=== PATIENT | female | born 1950 | race Caucasian/White ===

== ENCOUNTER 2019-08-08 15:00 | Inpatient (IN) ==
[2019-08-08] MEDS ORDERED: BENTYL IM ONE (15:30)
[2019-08-08] MEDS ORDERED: ZOFRAN IV ONE (15:30)
[2019-08-08] MEDS ORDERED: NS 1,000 ML IV ONE ×2 (15:30)
[2019-08-08] MEDS ORDERED: MORPHINE IV ONE ×2 (15:30→17:13)
[2019-08-08] MEDS ORDERED: FLAGYL 500 MG/NS 500 MG/100 ML IVPB IV ONE (15:32)
[2019-08-08] MEDS ORDERED: LEVAQUIN 750 MG/D5W 750 MG/150 ML IVPB IV ONE (15:32)
--- NOTE | 2019-08-08 16:02 | Diag Imaging Result Doc PS360 ---
EXAM: CHEST-PORTABLE INDICATION: tachycardia TECHNIQUE: One view COMPARISON: 01/16/2018 FINDINGS: The right chest port is in stable position. The lungs are grossly clear. There is no discrete pleural fluid collection or pneumothorax. The cardiomediastinal silhouette and central vasculature are grossly unremarkable. IMPRESSION: No evidence of acute pathology by plain radiograph. Electronically signed by Ronen Reynoso 08/08/2019 3:59 PM
--- NOTE | 2019-08-08 16:17 | EKG Report ---
Test Performed on : 08/08/2019 4:11:52 PM Test Reason : tachycARDIA Blood Pressure : / mmHG Vent. Rate : 088 BPM Atrial Rate : 088 BPM P-R Int : 142 ms QRS Dur : 088 ms QT Int : 404 ms P-R-T Axes : 062 -30 073 degrees QTc Int : 488 ms Undetermined rhythm Left axis deviation Low voltage QRS Inferior infarct , age undetermined Abnormal ECG When compared with ECG of 16-JAN-2018 15:21, Current undetermined rhythm precludes rhythm comparison, needs review Unconfirmed Result
[2019-08-08 17:04] LABS: PROTIME 13.3 Seconds (11.0-16.0)
[2019-08-08 17:36] LABS: AGAP 14; ALB/GLOB RATIO 2.5; ALBUMIN 4.2 g/dL (3.5-5.0); ALKALINE PHOSPHATASE 80 U/L (32-104); AMYLASE 44 U/L (20-200); BUN 11 mg/dL (8-22); CALCIUM 10.1 mg/dL (8.8-10.2); CHLORIDE 101 mmol/L (98-107); COSMO 283; CREATININE 0.6 mg/dL (0.5-0.9); ESTIMATED GFR > 60; GLUCOSE 116 mg/dL (70-104); GOT 21 U/L (10-30); GPT 11 U/L (10-36); LIPASE 21 U/L (13-60); POTASSIUM 4.3 mmol/L (3.5-5.1); SODIUM 142 mmol/L (136-145); TCO2 27 mmol/L (25-35); TOTAL BILIRUBIN 0.56 mg/dL (0.20-1.00); TOTAL PROTEIN 5.9 g/dL (6.3-8.3)
[2019-08-08 17:45] LABS: BASO# 0.03 X1000 (0.0-0.2); BASO% 0.5 % (0.0-0.8); EOS# 0.01 X1000 (0.0-0.7); EOS% 0.2 % (0.0-10.0); HEMATOCRIT 39.2 % (37.0-47.0); HEMOGLOBIN 12.9 g/dL (12.0-16.0); IMM GRAN# 0.03 X1000 (0.0-0.04); IMM GRAN% 0.5 % (0.0-0.5); LYMPH# 0.81 X1000 (1.2-3.4); LYMPH% 13.5 % (20.5-51.1); MCH 28.4 PG (27-31); MCHC 32.9 g/dL (33-37); MCV 86.3 FL (81-99); MONO# 0.49 X1000 (0.11-0.59); MONO% 8.2 % (1.7-9.3); MPV 10.7 FL (7.4-10.4); NEUT# 4.64 X1000 (1.4-6.5); NEUT% 77.1 % (42.2-75.2); PLT 152 X1000 (130-400); RBC 4.54 XMIL (4.2-5.4); RDW 12.9 % (11.5-14.5); WBC 6.01 X1000 (4.8-10.8)
--- NOTE | 2019-08-08 18:08 | PROVIDER DOCUMENTATION ---
This chart was entered by Jesika Urrutia Scribe, acting as scribe for Marshal Kennedy MD. HPI-Abdominal Pain/GI Problem - General Chief Complaint: Nausea/Vomiting Stated Complaint: N/V/D LEG PAIN Time Seen by Provider: 08/08/19 15:20 Source: patient Allergies/Adverse Reactions: Patient Allergies Allergy/AdvReac Type Severity Reaction Status Date / Time codeine Allergy VOMITING Verified 01/16/18 13:27 NSAIDS (Non-Steroidal Allergy ANAPHYLAXIS Verified 01/16/18 13:27 Anti-Inflamma Home Medications: Home Medication List Medication Instructions Recorded Confirmed Last Taken Type Hydrocodone/APAP 7.5 mg/325 mg 1 ea PO TID 08/08/19 08/08/19 08/07/19 16:00 History [Alexandria-7.5] - History of Present Illness-ABD Nature of Presenting Problems: 69yof presents to ED cc chills, body aches, fatigue, nausea, vomiting and diarrhea for 4 days. Pt reports she was recently taken off Lexapro and Baclofen after 1 yr of use because the at the [facility] won't write for it like her OBGYN, who retired, did. Pt has also been on [place] for a long time due to chronic back pain but hasn't had it in 4 days due to the N/V. Pt has hx of Colon and Endometrial Cancer. Pt is moderately ill-appearing upon exam. Pt , Kye Benz, was admitted to ICU a few days ago for Diarrhea x6 days, respiratory acidosis, HARPREET, NSTEMI. Pt has had negative blood cultures and has had no stool culture since being admitted. Quality of Pain: reports: aching Severity in ED: reports: mild, moderate Onset/Duration: reports: 4 days ago Timing: reports: still present Activities at Onset: reports: light activity Modifying Factors: improves with: nothing Associated Symptoms: reports: diarrhea, fatigue, fever/chills (chills), muscle aches, nausea, vomiting Similar Symptoms Previously?: No Recently seen or treated by another doctor?: No Review of Systems - Adult - REVIEW OF SYSTEMS - ADULT Constitutional: reports: see HPI, chills, fatique. denies: fever Eyes: reports: no symptoms reported Ears, Nose, Mouth & Throat: reports: no symptoms reported Cardiovascular: reports: no symptoms reported Respiratory: reports: no symptoms reported Gastrointestinal: reports: see HPI, diarrhea, nausea, vomiting Genitourinary: reports: no symptoms reported Musculoskeletal: reports: see HPI, muscle aches Integumentary: reports: no symptoms reported Neurological: reports: no symptoms reported Psychiatric: reports: no symptoms reported Endocrine: reports: no symptoms reported Hematologic/Lymphatic: reports: no symptoms reported Allergic/Immunologic: reports: no symptoms reported All Other Systems: Reviewed and Negative Past History - Adult - PAST MEDICAL HISTORY-ADULT Review of Records: reports: Nursing Assessment Review, Medications Reviewed, Social history reviewed & non-contributory. Major Childhood Illnesses: reports: denies history Cardiovascular: reports: HTN Respiratory: reports: denies history Gastrointestinal: reports: denies history Obstetrical/Gynecological: reports: other (endometrial cancer) Genitourinary: reports: denies history Musculoskeletal: reports: denies history Neurological: reports: denies history Endocrine/Immune: reports: denies history Other Conditions: reports: denies history - PRIOR SURGERIES/PROCEDURES Surgical/Procedure History: reports: joint replacement, back/neck - IMMUNIZATION STATUS Childhood Immunizations: See Nurse Assessment Flu Vaccine: See Nurse Assessment - FAMILY HISTORY Family History: reviewed, not pertinent Physical Exam-General - PHYSICAL EXAM-ADULT Initial Vital Signs Reviewed: Yes - CONSTITUTIONAL General Appearance: alert, other (active rigors). negative: appears well (mode rately ill appearing), anxious, combative - EYES Eyes: PERRL/EOMI, pink conjunctivae. negative: photophobia - HEAD, EARS, NOSE, MOUTH & THROAT HENMT: normocephalic/atraumatic. negative: moist mucous membranes (dry), angioedema - NECK Neck: supple - RESPIRATORY Respiratory: chest non-tender, lungs clear, normal breath sounds. negative: rhonchi, wheezing - CARDIOVASCULAR Cardiovascular: normal peripheral pulses, tachycardia. negative: bradycardia - GASTROINTESTINAL (ABDOMEN) Abdominal Exam: normal bowel sounds, non tender, soft. negative: guarding, rebound - MUSCULOSKELETAL Extremity: normal inspection, normal capillary refill. negative: deformity - SKIN Integumentary: negative: normal color (pale), normal turgor (decreased), jaundice, rash - PSYCHIATRIC Psych/Mental Status: normal mood/affect, oriented x 3. negative: anxious, dishe veled Progress - PLAN OF CARE/RESULTS Progress/Plan/Lab Results: Vital Signs - 8 hr 08/08/19 15:10 Temperature 98.0 F Pulse Rate 101 H Respiratory Rate 16 Blood Pressure 166/76 O2 Sat by Pulse Oximetry 99 Orders Category Date Time Status Nursing- Obtain EKG once Care 08/08/19 15:31 Ordered Saline Loc DIRECTED Care 08/08/19 15:29 Active NPO Diet 08/08/19 15:29 Active CHEST-PORTABLE [RAD] Stat Exams 08/08/19 15:32 Ordered AMYLASE [CHEM] Stat Lab 08/08/19 15:29 Uncollected BLOOD CULTURE [BLDCUL] Stat Lab 08/08/19 15:30 Ordered C DIFF TOXIN [STOOL] Stat Lab 08/08/19 15:30 Uncollected CBC WITH ELECTRONIC DIFF [HEME] Stat Lab 08/08/19 15:29 Uncollected COMPREHENSIVE METABOLIC PANEL [CHEM] Stat Lab 08/08/19 15:29 Uncollected LACTATE, PLASMA [CHEM] Stat Lab 08/08/19 15:30 Uncollected LIPASE [CHEM] Stat Lab 08/08/19 15:29 Uncollected PRO B-NATRIURETIC PEPTIDE Stat Lab 08/08/19 15:30 Uncollected PROTIME WITH INR [COAG] Stat Lab 08/08/19 15:30 Uncollected STOOL CULTURE [RM] Stat Lab 08/08/19 15:30 Uncollected TROPONIN T HIGH SENSITIVITY Stat Lab 08/08/19 15:30 Uncollected URINALYSIS W/POSS RFLX CULT [URINALYSIS] Stat Lab 08/08/19 15:29 Uncollected 0.9% Sodium Chloride Inj [Ns] 1,000 ml Med 08/08/19 15:30 Active IV 999 mls/hr 0.9% Sodium Chloride Inj [Ns] 1,000 ml Med 08/08/19 15:30 Active IV 999 mls/hr Dicyclomine [Bentyl] Med 08/08/19 15:30 Discontinued 20 mg IM NOW ONE Morphine Med 08/08/19 15:30 Discontinued 2 mg IV NOW ONE Ondansetron [Zofran] Med 08/08/19 15:30 Once 4 mg IV NOW ONE EKG [EKG] Stat Ther 08/08/19 15:31 Ordered Result Diagrams: 08/08/19 17:20 08/08/19 16:17 - REASSESSMENT Reassessment #1 Time Reassessed: 18:05 Status: improving (Patient very dehydrated, with hospitalized with same problem, will ask hospitalist to admit until better) - EKG 1 Time of EKG reading by physician:: 16:49 EKG Read and Signed by:: Marshal Kennedy EKG Interpretation (*Must complete 3 of following elements*): Abnormal (heavy artifact present) Rate: 88 Rhythm: NSR [place]: left QRS: LVH, other (low voltage) - XRAY 1 XRAY: Bilateral XRAY Study: Chest Impression: See EMR Report ( IMPRESSION: No evidence of acute pathology by alex in radiograph. Electronically signed by Ronen Reynoso 08/08/2019 3:59 PM) Departure - Departure Date of Disposition Decision: 08/08/19 Time of Disposition Decision: 18:06 DIAGNOSIS: Nausea, vomiting and diarrhea, Dehydration, moderate, Opioid use with withdrawal Antidepressant discontinuation syndrome Qualifiers: Encounter type: initial encounter Qualified Code(s): T43.205A - Adverse effect of unspecified antidepressants, initial encounter Disposition: ADMITTED INPATIENT 09 Certified Medical Emergency: Emergent Condition: Stable Referrals and Follow-Ups: None,PCP [Primary Care Provider] - - Critical Care Note This patient required my direct & personal management of CC.: No Attestation - Physician/ TREVOR Attestation Patient care was provided by Advanced Practice Provider:: No The physician spent face to face time with patient:: Yes Advanced Practice Provider documentation review:: Supervising physician onsite and consulted in the evaluation and care of this patient. The physician did have a face to face encounter with the patient. This chart was documented by the indicated scribe, (Jesika Urrutia Scribe) and accurately reflects the services I performed and decisions made by , Marshal Kennedy MD, as attested by the provider's signature.
[2019-08-08 18:21] LABS: URINE SOURCE CLEAN CATCH
[2019-08-08 18:24] LABS: BILIRUBIN URINE NEGATIVE (NEGATIVE); BLOOD URINE NEGATIVE (NEGATIVE); COLOR YELLOW; GLUCOSE URINE NEGATIVE (NEGATIVE); KETONE URINE 40 mg/dL (NEGATIVE); LEUKOCYTES URINE NEGATIVE (NEGATIVE); NITRITE URINE NEGATIVE (NEGATIVE); PROTEIN URINE TRACE mg/dL (NEGATIVE); SP GRAVITY URINE 1.019; TURBIDITY URINE CLEAR (CLEAR); UR EPITHELIAL CELLS <10 /HPF (<10); URINE BACTERIA NEGATIVE /HPF; URINE RBC <10 /HPF (<10); URINE WBC <10 /HPF (<10); UROBILINOGEN URINE 2 mg/dL (NORMAL)
--- NOTE | 2019-08-08 19:11 | HISTORY AND PHYSICAL ---
HISTORY OF PRESENT ILLNESS: Ms. Mirella Benz is a 69-year-old who stated that yesterday she started having some nausea, feeling bad, unable to keep her Wol[place] down, which she takes for chronic back pain, and it just progressed today, with a lot of nausea, vomiting, and diarrhea started. Her had a gastroenteritis and was in the hospital recently. Primary care doctor is SOPHIA Joseph. She goes to the [facility] and recently she had her baclofen stopped, and her [employer] stopped her Lexapro, and she feels like she needs to have that started back again. Last admission 01/16/2018, fell and had right hip pain. PAST MEDICAL HISTORY: 1. Chronic lower back pain, spinal stenosis. She has had numerous epidurals. She is not able to have surgery because of osteoporosis. She has L5-S1 protruded disk and L2-L3. There is significant degeneration. 2. Endometrial cancer, status post chemotherapy. She had recurrent cancer. They did a vaginal wall resection. They did do external and internal radiation and she had some chemotherapy. 3. She has a history of colon cancer in 2016. They did a colon resection, but apparently no chemotherapy or anything else. 4. It sounds like she has had a history of depression. She has had a couple of family members with severe medical problems and that is what they put her on the Lexapro for. I think that was last year. PAST SURGICAL HISTORY: 1. Partial bowel resection. 2. Total hysterectomy. 3. External and internal radiation to the vaginal wall. 4. Cholecystectomy. 5. Appendectomy. 6. Port placement. SOCIAL HISTORY: She is . recent with a viral gastroenteritis. Denies tobacco, alcohol or drug use. Retired RN. FAMILY HISTORY: Noncontributory. She has a history of cancer in her family, and diabetes, hypertension, and heart disease. REVIEW OF SYSTEMS: General: No weight gain or loss. No fever or chills. She has had general malaise and maybe subjective fever in the last 24 hours. HEENT: No change in visual or hearing acuity. No throat or ear pain. No adenopathy that she has appreciated. Respiratory: No increased work of breathing or dyspnea. Cardiovascular: No chest pain or tachypalpitations. GI and : As noted above. No gross hematuria or dysuria, but nausea, vomiting, and she has had loose stools and diarrhea. Musculoskeletal/Neurologic: No focal complaints Endocrinologic/hemologic: No significant history. PHYSICAL EXAMINATION: VITAL SIGNS: Temperature 99 degrees, pulse 90, respirations 20, blood pressure 150/94. Weight 136 pounds. Height 5 feet 3 inches. EYES: Pupils are equal and round. LUNGS: Clear in all lung juarez. CARDIOVASCULAR: Regular rhythm and rate without murmur or S3. ABDOMEN: Soft, nondistended, nontender. SKIN: Warm and dry. Oral and nasal mucosa unremarkable. NECK: Supple without adenopathy. LABORATORY DATA: White count 6010, hematocrit 39, platelet count 152,000. Sodium 142, potassium 4.3, chloride 101, BUN 11, creatinine 0.6. Blood sugar 116, calcium is 10, AST 21, ALT is 11, alkaline phosphatase is 80, albumin is 4.2. Pro time is 13. Urinalysis is unremarkable. Chest x- ray: No evidence of acute pathology and no infiltrates. ASSESSMENT AND PLAN: 1. It sounds like she had acute viral gastroenteritis and her was recently sick with this. I am going to give her some intravenous fluids. I will put her back on her Lexapro, and we will try and get her back on her Wol[place]. 2. Lumbosacral spinal stenosis, a lot of pain, chronic pain. We will see if we can get her back on her Wolcott and get some pain control. She also has what sounds like some peripheral polyneuropathy and may consider, down the road, pursuing something like Neurontin. She goes to the [facility] and I encouraged her to get a primary care physician as well. 3. History of endometrial and gastric cancer and history of colon cancer in the past. Aware. We will check her thyroid, T4, TSH, and B12 and folate. CURRENT MEDICATIONS AT HOME: Just the Wolcott. ALLERGIES: Codeine, and nonsteroidal anti-inflammatories which cause her abdominal pain. Codeine, I think, is more confusion and nausea. cc: Rashid Mancia MD
[2019-08-08] MEDS ORDERED: TYLENOL PO PRN (20:15)
[2019-08-08] MEDS ORDERED: ZOFRAN IV PRN (20:15)
[2019-08-08] MEDS: LEXAPRO PO ONE ×2 (20:33→20:47)
[2019-08-08] MEDS: NORCO-7.5 PO PRN (20:33)
[2019-08-08] MEDS: PRILOSEC PO SCH (20:34)
[2019-08-08 21:33] LABS: T4 7.82 ug/dL (4.60-12.00); TSH 1.36 uIUmL (0.27-4.20)
[2019-08-08 21:34] LABS: AGAP 12; BUN 9 mg/dL (8-22); CALCIUM 8.8 mg/dL (8.8-10.2); CHLORIDE 106 mmol/L (98-107); COSMO 283; CREATININE 0.6 mg/dL (0.5-0.9); ESTIMATED GFR > 60; GLUCOSE 92 mg/dL (70-104); MAGNESIUM 1.4 mg/dL (1.5-2.7); POTASSIUM 3.2 mmol/L (3.5-5.1); SODIUM 143 mmol/L (136-145); TCO2 25 mmol/L (25-35)
[2019-08-08] MEDS ORDERED: MAGNESIUM SULFATE 2 GM/S.W.I. 2 GM/50 ML IVPB IV ONE (23:30)
[2019-08-08] MEDS ORDERED: RESTORIL PO ONE (23:30)
[2019-08-09] MEDS: NS + KCL 40 MEQ 1,000 ML IV SCH ×2 (00:08→10:18)
[2019-08-09] MEDS: NORCO-7.5 PO PRN ×4 (02:53→15:29)
[2019-08-09] MEDS: PRILOSEC PO SCH (08:34)
[2019-08-09 11:50] VITALS: BP 170/79
--- NOTE | 2019-08-09 13:32 | DISCHARGE SUMMARY ---
ADMISSION DATE: 08/08/2019 DISCHARGE DATE: 08/09/2019 HOSPITAL COURSE: This is a 69-year-old who stated that yesterday she started having some nausea, feeling unable to keep her Panora down. States that she has chronic back pain. A lot of nausea, vomiting, and diarrhea persisted consistent with a viral gastroenteritis. Her recently apparently had a viral gastroenteritis. Her primary care is SOPHIA Joseph. She goes to [facility] for her spinal stenosis and pain. She was getting given some fluids. We found no evidence of bacterial infection. Her Panora, she had recently stopped, and Lexapro. I restarted the Lexapro and the following morning she was much better. The nausea had resolved. Lab and electrolytes looked good and she wanted to go home so I will discharge her and give her a prescription for some Panora 40 of them. She is to go to the Pain Clinic in a couple weeks and I also put her back on her Lexapro 10 mg a day. DISCHARGE MEDICATIONS: Lexapro 10 mg a day, Panora 7.5 mg t.i.d. FOLLOW-UP INSTRUCTIONS: Follow up with her primary care. cc: Rashid Mancia MD
== END 2019-08-09 16:06 | disposition home or self-care (01) | DRG 641 ==
LOC: ED 15:00 → SUATTDRO 19:36 → 3N 19:36
PROVIDERS: ADMIT Emergency Medicine; ATTEND Emergency Medicine